=== PATIENT | female | born 1965 | race Caucasian/White ===

== ENCOUNTER 2017-03-05 17:55 | Emergency (ER) | payer SELFPAY ==
--- NOTE | ~2017-03-05 | ER ---
PATIENT'S NAME: ANDRZEJ PARK [facility] AGE: 51 Y [address] ROOM: [place] [address] LOCATION: ED ADMIT DATE: 03/05/2017 ER/Outpatient Report DISCHARGE DATE: 03/05/2017 FAMILY PHYSICIAN: PHYSICIAN, NO ATTENDING PHYSICIAN: Riya Dahl Time of Arrival: 1804 hours. Time of Exam: 1812 hours. CHIEF COMPLAINT: Abdominal pain. HISTORY OF PRESENT ILLNESS: The patient states that for the last 2 days, she has had lower abdominal pain and lower back pain. She reports she has had some diarrhea today that is yellowish pudding in nature. Then, states she has had chills. Has not been vomiting. No nausea. Denies any pain or frequency with urination. Describes the pain as a crampy-type pain. ALLERGIES: SHE HAS NO KNOWN ALLERGIES. CURRENT MEDICATIONS: On the chart and reviewed by me. PAST MEDICAL HISTORY: 1. Insulin-dependent diabetes. 2. Hypertension. However, she states she has been off her blood pressure pills for the last 2 months at the recommendation of her physician. PAST SURGERIES: 1. Ankle surgery. 2. Tubal ligation. 3. Cholecystectomy. SOCIAL HISTORY: She denies use of tobacco, drugs, or alcohol. REVIEW OF SYSTEMS: All negative other than those mentioned in the HPI. PHYSICAL EXAMINATION: VITAL SIGNS: She weighs 66.2 kg, blood pressure is 166/103, pulse of 85, respirations 16, temperature of 97 tympanic, O2 saturation is 97% on room air. PATIENT'S NAME: ANDRZEJ PARK [facility] AGE: 51 Y [address] ROOM: [place] [address] LOCATION: [facility] ADMIT DATE: 03/05/2017 ER/Outpatient Report DISCHARGE DATE: 03/05/2017 FAMILY PHYSICIAN: PHYSICIAN, NO ATTENDING PHYSICIAN: Riya Dahl GENERAL: She is awake, alert, and oriented x4. SKIN: [place], warm, and dry. RESPIRATIONS: Even and nonlabored. Lung sounds are clear throughout. HEART: Regular rate and rhythm. ABDOMEN: Soft, nondistended. Bowel sounds are present. She is tender around the umbilicus area. EMERGENCY ROOM COURSE: Saline lock was initiated. Fluids of normal saline were started at a wide- open rate. She was given Zofran 4 mg IV. LABORATORY DATA: Lab work was drawn. CBC is within normal limits. Chem panel is within normal limits. Her glucose is 215. ALT is 34 with AST of 38. BHB is 2.1. Venous pH is 7.39, lactate is 1.4. Procalcitonin was 0.11. Clean-catch UA was obtained. It does have 500 leukocytes, 10 of blood. Her micro showed moderate amount of bacteria. CT scan was completed. Radiology reports mild colitis. No bowel obstruction. No hydronephrosis. No definitive diverticulitis. Appendix appears normal. EMERGENCY DEPARTMENT COURSE: With rest and fluids, the patient states she was feeling better. IMPRESSION: Urinary tract infection. PLAN: Home, rest, fluids. Tylenol or ibuprofen for discomfort. I did write a prescription for Ronald and Macrobid. She is to follow up with her primary provider in the next 2 or 3 days if symptoms persist or worsen. She verbalized understanding. SONY EAST APRN FOR MD REBA MCGOWAN/reji /[id number] d: 03/06/17 0130 t: 03/08/17 1500, OUTPATIENT REPORT
[~2017-03-05 17:55] MED LIST: FEOSOL325 MG PO; FLAGYL500 MG PO; LANTUS (IN100 UNIT/M SUB-Q; LEVAQUIN 750 M750 MG PO; MIRALAX17 GM PO; NORVASC10 MG PO; NOVOLOG100 UNIT/M SUB-Q; PRINIVIL OR ZES10 MG PO; TOPAMAX25 MG PO; TYLENOL325 MG PO; ULTRAM50 MG PO
[2017-03-05 18:34] LABS: BICARBONATE 29.1 mmol/L (18.0-23.0); LACTATE 1.4 mEq/L (0.50-1.60); PCO2 48 mmHg (35-45)
[2017-03-05 18:35] LABS: BASOPHIL # 0.1 K/uL (0.0-0.2); BASOPHIL % 0.8 %; EOSINOPHIL % 0.5 %; HEMATOCRIT 39.3 % (33.0-46.0); HEMOGLOBIN 12.8 g/dL (10.0-15.0); IMMATURE GRANULOCYTE % 0.4 %; LYMPHOCYTE # 1.4 K/uL (0.8-4.0); LYMPHOCYTE % 17.5 %; MCH 30.8 pg (27.0-34.0); MCHC 32.6 gm/dL (32.0-36.5); MCV 94.7 fl (83.0-98.0); MONOCYTE # 0.4 K/uL (0.0-1.0); MONOCYTE % 4.9 %; MPV 9.8 fl (9.4-12.4); NEUTROPHIL % 75.9 %; NRBC % 0 /100WBC (0-0.00); PLATELET COUNT 361 K/uL (150-450); PO2 27 mmHg (80-90); RBC 4.15 M/uL (3.50-5.50); RDW-CV 13.1 % (11.9-14.6); WBC 7.9 K/uL (4.0-11.0)
[2017-03-05 18:40] LABS: BLOOD URINE 10 /UL (NEGATIVE); COLOR URINE YELLOW (YELLOW); GLUCOSE URINE 50 mg/dL (NEGATIVE); KETONE URINE 5 mg/dL (NEGATIVE); LEUKOCYTES URINE 500 /UL (NEGATIVE); NITRITE URINE NEGATIVE (NEGATIVE); PROTEIN URINE 100 mg/dL (NEGATIVE); TURBIDITY URINE 1+ (CLEAR); UROBILINOGEN URINE 1 mg/dL (NORMAL)
[2017-03-05 18:45] LABS: BACTERIA URINE MODERATE (NEGATIVE); RBC URINE NEGATIVE #/HPF (NEGATIVE)
[2017-03-05 18:53] LABS: CALCIUM 9.8 mg/dL (8.5-10.5); CREATININE 1.1 mg/dL (0.5-1.1); TOTAL BILIRUBIN 0.2 mg/dL (0.0-1.5)
== END 2017-03-05 20:24 | disposition disaster alternative care site (69) ==
LOC: GMED 17:55
PROVIDERS: Nurse Practitioner Family
DX: N39.0 Urinary tract infection, site not specified (principal); I10 Essential (primary) hypertension; E11.9 Type 2 diabetes mellitus without complications; Z90.49 Acquired absence of other specified parts of digestive tract; Z98.51 Tubal ligation status; Z98.890 Other specified postprocedural states
CPT/HCPCS: J2405; J7030; Q9967